=== PATIENT | male | born 2000 | race Caucasian/White ===

== ENCOUNTER 2024-08-13 14:50 | Emergency (ER) | payer OTHER ==
[~2024-08-13] VITALS: Ht 185.4 cm; Wt 113.9 kg
[2024-08-13] MEDS ORDERED: NAPR-837 PO (16:03)
[2024-08-13 16:41] VITALS: BP 136/68; TEMP 98.1; O2SAT 97
== END 2024-08-13 16:51 | disposition home or self-care (01) ==
LOC: EDBD 14:50 → M ED 14:50
DX: S16.1XXA Strain of muscle, fascia and tendon at neck level, initial encounter (principal); V49.40XA Driver injured in collision with unspecified motor vehicles in traffic accident, initial encounter; Y92.9 Unspecified place or not applicable; Y93.9 Activity, unspecified; Y99.9 Unspecified external cause status; Z88.0 Allergy status to penicillin

== ENCOUNTER → 2024-10-10 | Outpatient (CLI) | payer OTHER ==
[~2024-10-10] MED LIST: NAPR-837 PO
== END ==
LOC: M RAD 13:34
PROVIDERS: ATTEND Physician Assistant
DX: J32.8 Other chronic sinusitis (principal); J34.2 Deviated nasal septum